=== PATIENT | female | born 1950 | race Caucasian/White ===

== ENCOUNTER 2022-12-17 13:02 | Outpatient (CLI) | payer MEDICARE ==
--- NOTE | 2022-12-17 16:28 | MRI Report ---
PROCEDURE: SHOULDER WO - RT INDICATIONS: SHOULDER PAIN TECHNIQUE: Noncontrast oblique coronal T2 fast spin echo with fat saturation, oblique sagittal T1 spin echo and T2 fast spin echo with fat saturation, axial T1 spin echo and T2 fast spin echo with fat saturation a nd 3-D gradient echo through the shoulder. COMPARISON: None. FINDINGS: Image quality: Excellent. Rotator cuff: Focal high-grade partial bursal sided tearing of the supraspinatus tendon at the anteri or footprint measuring 0.4 cm in anteroposterior dimension with adjacent traction cystic changes. The re appears to be some partial articular sided tearing of the distal supraspinatus tendon at the criti yu zone. Findings are superimposed on chronic supraspinatus and infraspinatus tendinosis. The teres minor tendon is intact. Moderate subscapularis tendinosis. Mild grade [address] es minor muscle may be secondary to chronic denervation changes. No mass is seen along the course of the axillary nerve. Bones and bursae: No acute trabecular bone injury or fracture. Chronic traction cystic changes are se en at the posterosuperior humeral head as well as the greater and lesser tuberosities near the rotato r cuff tendon insertions. There is irregularity of the articular cartilage at the posterior glenoid w ith subchondral irregularity, subchondral cystic changes, and marginal osteophyte formation. Moderate degenerative changes are seen at the acromioclavicular joint with subchondral cystic changes and sub chondral edema. There is a moderate amount of subacromial/subdeltoid bursal fluid. A small glenohumer al effusion is present. Capsule and soft tissues: There is diffuse labral degeneration and chronic degenerative tearing is m ost prominent superiorly and posteriorly. The proximal biceps long head tendon demonstrates severe te ndinosis and partial intrasubstance tearing. There is effacement of the normal fat signal in the rota tor interval. Glenohumeral ligaments are intact. IMPRESSION: 1.Focal high-grade partial bursal sided tearing of the supraspinatus tendon at the anterior footprint . Additional high-grade partial articular sided tearing of the supraspinatus tendon is seen at the cr itical zone. A full-thickness component is not excluded. Findings are superimposed on chronic suprasp inatus and infraspinatus tendinosis. 2.Moderate subscapularis tendinosis. 3.Severe tendinosis and partial intrasubstance tearing involving the proximal biceps long head tendon . 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 5.Moderate acromioclavicular joint osteoarthrosis. 6.Moderate subacromial/subdeltoid bursal effusion. Small glenohumeral effusion. Reviewed by: Brandyn Espinal MD on 12/17/2022 4:27 PM PDT Approved by: Brandyn Espinal MD on 12/17/2022 4:27 PM PDT Station ID: [id number]
== END 2022-12-17 13:03 | disposition home or self-care (01) ==
LOC: DI 13:02
PROVIDERS: ATTEND Internal Medicine
DX: M75.111 Incomplete rotator cuff tear or rupture of right shoulder, not specified as traumatic (principal); S46.111A Strain of muscle, fascia and tendon of long head of biceps, right arm, initial encounter; M19.011 Primary osteoarthritis, right shoulder; M94.211 Chondromalacia, right shoulder; M25.411 Effusion, right shoulder